=== PATIENT | male | born 1995 | race Caucasian/White ===

== ENCOUNTER 2017-04-09 20:36 | Emergency (ER) | payer BC ==
[2017-04-09 20:43] VITALS: BP 133/77
[2017-04-09] MEDS ORDERED: Bacitracin/Neomycin/Polymyxin B Oint 28.4 GM Tube TOP ONE (21:10)
[2017-04-09] MEDS ORDERED: Diphtheria,Pertussis(Acell),Tetanus Vaccine 0.5 ML Syringe IM ONE (21:10)
--- NOTE | 2017-04-09 21:25 | EDM.PDOC ---
ED HPI GENERAL MEDICAL PROBLEM - General Chief Complaint: Lower Extremity Injury/Pain Stated Complaint: TOE INJURY Time Seen by Provider: 04/09/17 20:50 Source of Information: Reports: Patient History Limitations: Reports: No Limitations - History of Present Illness INITIAL COMMENTS - FREE TEXT/NARRATIVE: Patient presents today with concerns of left great toe pain. He dropped a concave piece of a combine on his foot around 1400 today. Has noted bleeding from the nail bed and more discomfort over the course of the day with weight bearing. No other injury or concern. Onset: Today, Sudden Duration: Hour(s): Location: Reports: Lower Extremity, Left Quality: Reports: Throbbing Severity: Mild Improves with: Reports: Rest Worsens with: Reports: Movement Context: Reports: Trauma Left 1-Hallux Pain Score (Numeric/FACES): 3 - Related Data Allergies Allergy/AdvReac Type Severity Reaction Status Date / Time house dust Allergy Shortness Verified 04/09/17 20:43 of Breath Home Meds: Home Meds Fexofenadine/Pseudoephedrine [Inessa-D 12 Hour Tablet] 1 tab PO BID PRN [History] Past Medical History - Past Health History Medical/Surgical History: Denies Medical/Surgical History Respiratory History: Reports: Asthma Musculoskeletal History: Reports: Fracture Other Musculoskeletal History: Scoliosis Social & Family History - Tobacco Use Smoking Status *Q: Never Smoker - Caffeine Use Caffeine Use: Reports: None - Recreational Drug Use Recreational Drug Use: No Review of Systems - Review of Systems Review Of Systems: ROS reveals no pertinent complaints other than HPI. ED EXAM, GENERAL - Physical Exam Exam: See Below Exam Limited By: No Limitations General Appearance: Alert, WD/WN, No Apparent Distress Extremities: Other (Left great toe is bruised with blood oozing from the base of the nail bed. He is very tender in this area. Moderate amount of blood under the nail. Obvious bruising to toe.) Course - Vital Signs Last Recorded V/S: Last Vital Signs Temp 99 F 04/09/17 20:38 Pulse 67 04/09/17 20:38 Resp 18 04/09/17 20:38 BP 133/77 04/09/17 20:38 Pulse Ox 99 04/09/17 20:38 - Orders/Labs/Meds Orders: Active Orders 24 hr Category Date Time Status Vaccines to be Administered [RC] PER UNIT ROUTINE Care 04/09/17 21:11 Active Toes Great Toe Lt TA [CR] Stat Exams 04/09/17 20:47 Taken Meds: Medications Discontinued Medications Generic Name Dose Route Start Last Admin Trade Name Ashwini PRN Reason Stop Dose Admin Diphtheria/Tetanus/Acell Pertussis 0.5 ml 04/09/17 21:10 04/09/17 21:14 Adacel IM 04/09/17 21:11 0.5 ml .ONCE ONE Administration Neomycin/Polymyxin/Bacitracin 1 gm 04/09/17 21:10 04/09/17 21:19 Triple Antibiotic Oint TOP 04/09/17 21:11 1 applic ONETIME ONE Administration - Re-Assessments/Exams Free Text/Narrative Re-Assessment/Exam: 04-09-17 Xrays show a distal left great toe fracture. Did cauterize the nail to open for blood accumulation. Small amount of blood noted after. Patient tolerated well. Departure - Departure Time of Disposition: 21:22 Disposition: Home, Self-Care 01 Condition: Good Clinical Impression: Fracture of great toe, left, closed Qualifiers: Encounter type: initial encounter Phalanx: distal Fracture alignment: nondisplaced Qualified Code(s): S92.425A - Nondisplaced fracture of distal phalanx of left great toe, initial encounter for closed fracture - Discharge Information Referrals: Yahir Underwood PA-C [Primary Care Provider] - Forms: ED Department Discharge Additional Instructions: 1. Rest 2. Ice frequently tonight and tomorrow 3. Cast shoe on at all times 4. Triple antibiotic ointment for several days 5. Repeat xray in 2 weeks 6. Will notify you of concerns if any needed referral or follow up. - My Orders Last 24 Hours: My Active Orders 04/09/17 20:47 Toes Great Toe Lt TA [CR] Stat 04/09/17 21:11 Vaccines to be Administered [RC] PER UNIT ROUTINE - Assessment/Plan Last 24 Hours: My Active Orders 04/09/17 20:47 Toes Great Toe Lt TA [CR] Stat 04/09/17 21:11 Vaccines to be Administered [RC] PER UNIT ROUTINE
== END 2017-04-09 21:35 | disposition home or self-care (01) ==
LOC: CC.ED 20:36 → SUPCPDRO 20:36 → CC.ED 21:35
DX: S92.425A Nondisplaced fracture of distal phalanx of left great toe, initial encounter for closed fracture (principal); J45.909 Unspecified asthma, uncomplicated; Z91.09 Other allergy status, other than to drugs and biological substances; Z23 Encounter for immunization
CPT/HCPCS: 73660-TA; 90471; 90715; 99283